=== PATIENT | male | born 1950 | race Hispanic/Latino ===

== ENCOUNTER → 2018-07-17 | Day surgery (SDC) | payer MEDICARE, OTHER ==
[~2018-07-17] MED LIST: AVODART0.5 MG PO; AZITHROMYCIN250 MG PO; ETHAMBUTOL HCL400 MG PO; FENTANYL CITRATE/PF 100MCG/2 ML INJ ONE; MIDAZOLAM HCL 2 MG/2 ML VIAL ONE; PROPOFOL IV EMULSION 10 MG/ML 50 ML VIAL ONE; TAMSULOSIN HCL0.4 MG PO; [UNRECOGNIZED DRUG - OTHER] PO
--- OUTSIDE RECORDS SUMMARY | 2018-07-17 09:41 | XMS REPORT ---
[facility] Address Unknown Phone Unavailable Care Team Providers Care Chemical Sprayer Name Role Phone Unavailable Unavailable Payers Payer Name Policy Type Policy Number Effective Date Expiration Date Problems This patient has no known problems. Allergies, Adverse Reactions, Alerts Allergy Name Allergy Type Status Severity Reaction(s) Onset Date Inactive Date Treating Clinician Comments No Known Allergies DA Active U 2015-06-15 00:00:00 Medications This patient has no known medications.
[2018-07-17 14:30] VITALS: BP 124/67
== END | disposition home or self-care (01) ==
LOC: OR 09:35
PROVIDERS: ATTEND Internal Medicine Gastroenterology
DX: K31.89 Other diseases of stomach and duodenum (principal); K29.50 Unspecified chronic gastritis without bleeding; K44.9 Diaphragmatic hernia without obstruction or gangrene; I49.1 Atrial premature depolarization; R05 Cough; N40.0 Benign prostatic hyperplasia without lower urinary tract symptoms; R09.89 Other specified symptoms and signs involving the circulatory and respiratory systems; R74.8 Abnormal levels of other serum enzymes; Z01.810 Encounter for preprocedural cardiovascular examination; Z01.812 Encounter for preprocedural laboratory examination; Z87.891 Personal history of nicotine dependence
CPT/HCPCS: 43239; 93005; J2250; J2704

== ENCOUNTER → 2018-07-24 | Day surgery (SDC) | payer MEDICARE, OTHER ==
[2018-07-13 09:35] LABS: BASOPHILS # (AUTO) 0.1 (0.0-0.1); BASOPHILS % 0.7 % (0.0-1.0); EOSINOPHILS # (AUTO) 0.4 (0.0-0.4); EOSINOPHILS % 5.6 % (0.0-6.0); HEMATOCRIT 42.6 % (38.2-49.6); LYMPHOCYTES # (AUTO) 1.3 (1.0-3.2); LYMPHOCYTES % 16.7 % (18.0-39.1); MEAN CORPUSCULAR HEMOGLOBIN 31.3 pg (28-32); MEAN CORPUSCULAR HGB CONC 35.2 g/dL (31-35); MEAN CORPUSCULAR VOLUME 88.9 fL (81-99); MONOCYTES # (AUTO) 0.9 (0.2-0.8); MONOCYTES % 11.1 % (4.4-11.3); NEUTROPHILS % 65.4 % (38.7-80.0); PLATELET COUNT 170 x10e3/uL (140-360); RED BLOOD COUNT 4.79 x10e6/uL (4.3-5.7); RED CELL DISTRIBUTION WIDTH 12.9 % (11.7-14.4)
[~2018-07-24] MED LIST changes: +HYOSCYAMINE SULFATE 0.5 MG/ML INJ ONE
[2018-07-24 08:25] VITALS: BP 119/71
== END | disposition home or self-care (01) ==
LOC: OR 05:00
PROVIDERS: ATTEND Internal Medicine Gastroenterology
DX: Z12.11 Encounter for screening for malignant neoplasm of colon (principal); K64.8 Other hemorrhoids; I49.1 Atrial premature depolarization; K31.89 Other diseases of stomach and duodenum; N40.0 Benign prostatic hyperplasia without lower urinary tract symptoms; R09.89 Other specified symptoms and signs involving the circulatory and respiratory systems; R74.8 Abnormal levels of other serum enzymes
CPT/HCPCS: 36415; 85025; G0121; J1980; J2250; J2704; 45378

== ENCOUNTER 2019-07-05 11:09 | Inpatient (IN) | payer MEDICARE, OTHER ==
[~2019-07-05] VITALS: Ht 170.2 cm; Wt 64.0 kg
[~2019-07-05 11:09] MED LIST changes: -FENTANYL CITRATE/PF 100MCG/2 ML INJ ONE; -HYOSCYAMINE SULFATE 0.5 MG/ML INJ ONE; -MIDAZOLAM HCL 2 MG/2 ML VIAL ONE; -PROPOFOL IV EMULSION 10 MG/ML 50 ML VIAL ONE
--- NOTE | 2019-07-05 11:31 | NUR ---
RESP CALLED FOR ABG.
[2019-07-05 11:57] LABS: CLARITY,URINE CLEAR (CLEAR); COLOR,URINE ORANGE (YELLOW); LEUKOCYTE ESTERASE ,URINE NEGATIVE (NEGATIVE); NITRITE,URINE NEGATIVE (NEGATIVE); PROTEIN,URINE DIPSTICK 1+ (NEGATIVE)
[2019-07-05 11:58] LABS: BILIRUBIN,URINE NEGATIVE (NEGATIVE); KETONES,URINE TRACE (NEGATIVE); URINE UROBILINOGEN 0.2 mg/dL (0.2 - 1)
[2019-07-05 12:18] LABS: BACTERIA,URINE MODERATE /HPF; EPITHELIAL CELLS,URINE RARE /LPF; HYALINE CASTS 0-1 (0-1); RBC,URINE 0-5 /HPF (0-5)
[2019-07-05 12:23] LABS: BASOPHILS # (AUTO) 0.1 (0.0-0.1); BASOPHILS % 0.5 % (0.0-1.0); EOSINOPHILS # (AUTO) 0.1 (0.0-0.4); EOSINOPHILS % 1.2 % (0.0-6.0); HEMATOCRIT 35.4 % (38.2-49.6); HEMOGLOBIN 11.9 g/dL (14.0-18.0); LYMPHOCYTES # (AUTO) 0.6 (1.0-3.2); LYMPHOCYTES % 5.2 % (18.0-39.1); MEAN CORPUSCULAR HEMOGLOBIN 28.7 pg (28-32); MEAN CORPUSCULAR HGB CONC 33.6 g/dL (31-35); MEAN CORPUSCULAR VOLUME 85.3 fL (81-99); MONOCYTES # (AUTO) 0.8 (0.2-0.8); MONOCYTES % 7.7 % (4.4-11.3); NEUTROPHILS % 84.6 % (38.7-80.0); PLATELET COUNT 298 x10e3/uL (140-360); RED BLOOD COUNT 4.15 x10e6/uL (4.3-5.7); RED CELL DISTRIBUTION WIDTH 13.7 % (11.7-14.4)
[2019-07-05 12:29] LABS: ABG HCO3 21 mmol/L (23-28); ABG PCO2 27 mmHg (41-51); ABG PH 7.49 (7.31-7.41); ABG PO2 88 mmHg (80-105)
[2019-07-05 12:39] LABS: INR 1.14; PROTHROMBIN TIME 15.3 seconds (11.9-14.5)
[2019-07-05 12:40] LABS: PARTIAL THROMBOPLASTIN TIME 44.6 seconds (23.8-35.5)
--- NOTE | 2019-07-05 12:47 | Diagnostic Imaging Report ---
Chest, 1 view, 07/05/2019. History: Shortness of breath. Hypoxia. Comparison: None available. Findings: The cardiomediastinal silhouette and pulmonary vasculature are within normal limits for a portable exam. Diffuse bilateral mixed reticulonodular and alveolar opacities are present. There is right apical pleural thickening. There are no acute osseous or soft tissue abnormalities. Impression: Diffuse bilateral pulmonary opacities suggestive of pneumonia superimposed on interstitial edema or fibrosis. Signed by: Kodak Weeks on 07/05/2019 12:44 PM
[2019-07-05 12:48] LABS: ALANINE AMINOTRANSFERASE 17 IU/L (0-55); ALBUMIN 2.8 g/dL (3.5-5.0); ALBUMIN/GLOBULIN RATIO 0.7 (0.8-2.0); ALKALINE PHOSPHATASE 115 IU/L (40-150); ANION GAP 16.2 mmol/L (8-16); BLOOD UREA NITROGEN 10 mg/dL (7-26); BUN/CREATININE RATIO 15 (6-25); CALCIUM 8.8 mg/dL (8.4-10.2); CARBON DIOXIDE 22 mmol/L (22-29); CHLORIDE 97 mmol/L (98-107); CREATINE KINASE 35 IU/L (30-200); CREATININE, SERUM 0.68 mg/dL (0.72-1.25); EST GLOMERULAR FILTRATION RATE > 60 ML/MIN (60-); GLUCOSE 118 mg/dL (74-118); POTASSIUM 4.2 mmol/L (3.5-5.1); SODIUM 131 mmol/L (136-145)
--- NOTE | 2019-07-05 14:03 | Diagnostic Imaging Report ---
EXAM: CT Chest WITH contrast 07/05/2019 11:56 AM INDICATION: ^PE PROTOCOL, SOB, SEVERE CLUBBING, ALSO EVAL FOR MASS ^[id number] ^[id number] COMPARISON: Chest radiograph 07/05/2019 TECHNIQUE: Chest was scanned utilizing a multidetector helical scanner from the lung apex through the level of the adrenal glands without administration of IV contrast. Coronal and sagittal reformations were obtained. Routine protocol was performed. IV CONTRAST: 100 mL of Omnipaque 300 COMPLICATIONS: None RADIATION DOSE: Total DLP: 484 mGy*cm Estimated effective dose: (DLP x 0.014 x size factor) mSv CTDIvol has been reviewed. It is below the limits set by the Radiation Protocol Committee (RPC). Dose modulation, iterative reconstruction, and/or weight based adjustment of the mA/kV was utilized to reduce the radiation dose to as low as reasonably achievable. FINDINGS: LINES/ TUBES: None. LUNGS AND AIRWAYS: Severe emphysematous change. Scattered interstitial reticulation and honeycombing, notably in the anterior aspect of the left upper lobe and bilateral lower lobes. Biapical bullous change with mild to moderate tubular bronchiectasis with bronchial wall thickening. Additional severe cystic bronchiectasis within the lung bases with associated mucous plugging. Multifocal airspace consolidation and nodularity, most notably within the dependent aspects of the lower lobes and lung apices. Few right basilar interstitial calcifications. PLEURA: Small right pleural effusion. No pneumothorax. HEART AND MEDIASTINUM: No filling defect is identified within the pulmonary arteries to the segmental branches. The main pulmonary artery is normal in caliber. The heart is at the upper limit of normal in size. No pericardial effusion. Diffuse mediastinal and hilar lymphadenopathy. For example, an enlarged right hilar lymph node measures up to 1.6 cm in short axis (image 40) and an enlarged precarinal mediastinal lymph node measures 1.3 cm in short axis (image 40). Advanced coronary artery calcification. UPPER ABDOMEN: Small hiatal hernia. No gross hepatic lesion. BONES: No acute osseous abnormality. SOFT TISSUES: Unremarkable. IMPRESSION: 1. No pulmonary embolus. 2. Severe interstitial lung disease with honeycombing, bronchiectasis, and interstitial reticulation most suggestive of UIP, intermixed with pulmonary emphysema. Mucous plugging and parenchymal consolidation, notably in the lung bases, suggests a superimposed infectious process. 3. Nonspecific mediastinal and hilar lymphadenopathy, likely reactive. 4. Advanced coronary artery atherosclerosis. Signed by: Michael Langley MD on 07/05/2019 2:00 PM
[2019-07-05] MEDS ORDERED: IOPAMIDOL 370 MG/ML 200 ML INFUS..BTL INJ ONE (14:17)
[2019-07-05] MEDS ORDERED: SODIUM CHLORIDE 0.9% 50ML 50 ML ONE (14:17)
--- NOTE | 2019-07-05 15:06 | NUR ---
NOTIFIED OF VITALS.
[2019-07-05] MEDS ORDERED: METHYLPREDNISOLONE SOD SUCC 125 MG/2ML VIAL IV STA (15:07)
--- NOTE | 2019-07-05 15:32 | NUR ---
HAD TO CALL 2ND TIME FOR RESP TO COME BRING BIPAP
[2019-07-05] MEDS: ALBUTEROL SULF 0.083% NEB SOLN 3 ML NEB NEB SCH ×3 (15:56→19:15)
[2019-07-05] MEDS: IPRATROPIUM BROMIDE 0.02% 2.5 ML NEB NEB SCH ×3 (15:56→19:15)
[2019-07-05] MEDS ORDERED: ZOLPIDEM TARTRATE 5 MG TAB PO PRN (16:00)
[2019-07-05] MEDS: PIPER-TAZ 3.375 GM 50 ML IV SCH ×2 (16:00→21:31)
[2019-07-05] MEDS: LEVOFLOXACIN 750MG/D5W 150ML 150 ML IV SCH (17:18)
[2019-07-05] MEDS: SODIUM CHLORIDE 0.9% 1000ML 1,000 ML IV SCH (17:18)
--- NOTE | 2019-07-05 17:31 | NUR ---
05/01, rate 16, 50% fio2
[2019-07-05] MEDS ORDERED: ATROVENT HFA12.9 GM (18:17)
[2019-07-05] MEDS ORDERED: CEFPODOXIME PR200 MG PO (18:17)
[2019-07-05] MEDS ORDERED: RIFAMPIN300 MG PO (18:17)
[2019-07-05] MEDS ORDERED: FAMOTIDINE40 MG PO (18:17)
[2019-07-05] MEDS ORDERED: PREDNISONE20 MG (18:17)
[2019-07-05] MEDS ORDERED: TRELEGY ELLIPT1 EACH (18:17)
[2019-07-05] MEDS ORDERED: CLARITHROMYCIN500 MG PO (18:17)
[2019-07-05] MEDS ORDERED: ALBUTEROL2.5 MG/3 M (18:17)
[2019-07-05] MEDS ORDERED: AMIKACIN (18:17)
[2019-07-05] MEDS ORDERED: ACETAMINOPHEN 325 MG TAB PO PRN (19:15)
[2019-07-05] MEDS ORDERED: FINASTERIDE5 MG PO (19:21)
[2019-07-05] MEDS: METHYLPREDNISOLONE SOD SUCC 125 MG/2ML VIAL IV SCH (21:35)
[2019-07-05] MEDS: CLARITHROMYCIN 500 MG TAB PO SCH (21:37)
[2019-07-05] MEDS ORDERED: METHYLPREDNISOLONE SOD SUCC 125 MG/2ML VIAL IV SCH (22:00)
--- NOTE | 2019-07-05 23:31 | Consultation ---
DATE OF CONSULTATION: 07/05/2019 Pulmonary Critical Care Consultation CHIEF COMPLAINT: Dyspnea and history of mycobacterial avium infection. HISTORY OF PRESENT ILLNESS: The patient is a 68-year-old man. He has a history of chronic lung disease. He had some type of surgery and lung biopsy about a year ago. He has been on medications for Mycobacterium avium to an Infectious Disease doctor at [facility] for at least the last year. He also has a history of COPD. He uses oxygen at home as well as bronchodilators. Apparently, the patient was in Dr. Chambers's office for a GI evaluation when they noticed low oxygen saturation. The patient admits to dyspnea on exertion. He does not complain of cough or phlegm production. He denies any fevers. PAST SURGICAL HISTORY: 1. Status post thoracoscopic lung biopsy. 2. Status post hand surgery. 3. Status post foot surgery. PAST MEDICAL HISTORY: 1. Mycobacterium avium complex. 2. Bronchiectasis of the lungs as a result of the Mycobacterium avium complex. 3. Severe COPD. 4. Hiatal hernia. 5. Benign prostatic hypertrophy. SOCIAL HISTORY: The patient is not the active drinker. He is not actively smoking. FAMILY HISTORY: Family history is noncontributory. REVIEW OF SYSTEMS: The patient is afebrile. He has no headache. He has no neck pain. He is not having any chest pain. He has no abdominal pain. There is no nausea or vomiting. He denies any leg edema. PHYSICAL EXAMINATION: VITAL SIGNS: The patient is afebrile. Blood pressure 113/75 and the saturation is 100% on 4 L. Pulse is 89 and the respiratory rate is 26. HEENT: Shows no facial swelling or erythema. Oropharynx is normal. LYMPHATIC: Shows no submandibular, cervical, or supraclavicular adenopathy. CARDIAC: Reveals regular rate and rhythm with a normal S1 and S2. LUNGS: Auscultation of lungs reveals crackles at the bases. There is no wheezing. ABDOMEN: Soft, nontender. There is no rebound or guarding. EXTREMITIES: Show no leg edema or calf tenderness. There is no cyanosis or clubbing. There is marked clubbing in his hands. LABORATORY DATA: White blood cell count is 10.6 and hemoglobin is 11.9. The platelet count is 298. The BUN to creatinine ratio is normal. The sodium is 131. Albumin is 2.8. INR is 1.14 and the PT is 15.3. The ABG shows a pH of 7.5 and a CO2 of 27 with an O2 of 88 and a bicarb of 21. IMPRESSION: 1. Bronchiectasis with acute exacerbation. 2. Mycobacterium avium complex with chronic infection. 3. Chronic obstructive pulmonary disease with acute exacerbation. 4. Moderate protein-calorie malnutrition. 5. Prostatic hypertrophy. 6. Hypertension. PLAN: 1. Continue ethambutol, rifampin, and azithromycin as he was taking as an outpatient for his Mycobacterium avium complex. 2. Levaquin and Zosyn for any superimposed bacterial infection related to the bronchiectasis. 3. Await culture results. 4. Solu-Medrol 1 mg/kg twice a day. 5. Oxygen. 6. Nutritional supplementation. 7. Bronchodilators as needed. MD KEYUR [facility]/BRIDGETTL /[id number]
[2019-07-06] VITALS (9 sets, daily range): BP systolic 112–132; BP diastolic 51–69
[2019-07-06] MEDS: ALBUTEROL SULF 0.083% NEB SOLN 3 ML NEB NEB SCH ×7 (00:15→23:40)
[2019-07-06] MEDS: IPRATROPIUM BROMIDE 0.02% 2.5 ML NEB NEB SCH ×7 (00:15→23:40)
[2019-07-06 00:52] LABS: BASOPHILS % 0.3 % (0.0-1.0); EOSINOPHILS # (AUTO) 0.1 (0.0-0.4); EOSINOPHILS % 1.1 % (0.0-6.0); HEMATOCRIT 34.3 % (38.2-49.6); HEMOGLOBIN 11.5 g/dL (14.0-18.0); LYMPHOCYTES # (AUTO) 0.9 (1.0-3.2); LYMPHOCYTES % 9.7 % (18.0-39.1); MEAN CORPUSCULAR HEMOGLOBIN 28.7 pg (28-32); MEAN CORPUSCULAR HGB CONC 33.5 g/dL (31-35); MEAN CORPUSCULAR VOLUME 85.5 fL (81-99); MONOCYTES # (AUTO) 0.8 (0.2-0.8); MONOCYTES % 9.2 % (4.4-11.3); NEUTROPHILS # (AUTO) 7.2 (2.1-6.9); NEUTROPHILS % 78.6 % (38.7-80.0); PLATELET COUNT 307 x10e3/uL (140-360); RED BLOOD COUNT 4.01 x10e6/uL (4.3-5.7); RED CELL DISTRIBUTION WIDTH 13.7 % (11.7-14.4)
[2019-07-06] MEDS: SODIUM CHLORIDE 0.9% 1000ML 1,000 ML IV SCH (01:21)
[2019-07-06] MEDS: PIPER-TAZ 3.375 GM 50 ML IV SCH ×4 (02:43→20:46)
--- NOTE | 2019-07-06 05:54 | Diagnostic Imaging Report ---
EXAMINATION: CHEST SINGLE (PORTABLE) INDICATION: Pneumonia COMPARISON: 07/05/2019. FINDINGS: TUBES and LINES: None. LUNGS: Redemonstration of marked diffuse coarsening of the pulmonary interstitium, with multifocal patchy consolidation particularly right upper lobe best evaluated on recent CT examination of the chest. PLEURA: Bilateral trace pleural effusion. No pneumothorax. HEART AND MEDIASTINUM: The cardiomediastinal silhouette is unremarkable. BONES AND SOFT TISSUES: No acute osseous lesion. UPPER ABDOMEN: No free air under the diaphragm. IMPRESSION: No significant interval change in marked diffuse coarsening of the pulmonary interstitium, with multifocal patchy consolidation. Signed by: Dr. Fiorella Vee M.D. on 07/06/2019 5:51 AM
[2019-07-06 07:14] LABS: CREATINE KINASE 21 IU/L (30-200)
[2019-07-06] MEDS: RIFAMPIN 300 MG CAP PO SCH (08:00)
[2019-07-06] MEDS: ETHAMBUTOL HCL 400 MG TAB PO SCH (08:00)
[2019-07-06] MEDS: METHYLPREDNISOLONE SOD SUCC 125 MG/2ML VIAL IV SCH ×2 (08:00→20:44)
[2019-07-06] MEDS: CLARITHROMYCIN 500 MG TAB PO SCH ×2 (08:00→20:46)
[2019-07-06] MEDS: TAMSULOSIN HCL 0.4 MG CAP PO SCH (08:00)
[2019-07-06] MEDS ORDERED: CEFPODOXIME PROXETIL 200 MG PO SCH (09:00)
[2019-07-06] MEDS ORDERED: RIFAMPIN 300 MG CAP PO SCH (09:00)
[2019-07-06] MEDS ORDERED: ETHAMBUTOL HCL 400 MG TAB PO SCH (09:00)
[2019-07-06] MEDS ORDERED: AZITHROMYCIN 250 MG TAB PO SCH (09:00)
[2019-07-06] MEDS ORDERED: RIFAMPIN 600 MG PO SCH (09:00)
[2019-07-06] MEDS ORDERED: CLARITHROMYCIN 500 MG TAB PO SCH (09:00)
[2019-07-06] MEDS: LEVOFLOXACIN 750MG/D5W 150ML 150 ML IV SCH (15:39)
--- NOTE | 2019-07-06 17:10 | Progress Note ---
DATE: 07/06/2019 Pulmonary Progress Note This patient feels better. He has less dyspnea and less cough. He is not having any chest pain. PHYSICAL EXAMINATION: VITAL SIGNS: The patient is afebrile. The vital signs are stable. HEENT: Shows no facial swelling or erythema. CARDIAC: Reveals a regular rate and rhythm with normal S1, S2. LUNGS: Auscultation of lungs reveals clear breath sounds bilaterally. There is a prolonged expiratory phase. ABDOMEN: Soft, nontender. There is no rebound or guarding. LABORATORY DATA: BUN to creatinine ratio is normal. The other electrolytes are within normal limits. CBC is normal. IMPRESSION: 1. Bronchiectasis with acute exacerbation. 2. Mycobacterium avium infection. 3. Chronic obstructive pulmonary disease. 4. Moderate protein-calorie malnutrition. 5. Hypertension. PLAN: 1. Continue current antimicrobial regimen. 2. Consult ID. 3. Continue Solu-Medrol. 4. Continue oxygen. 5. Continue nutritional supplementation. Grant Aviles MD Gissel/BRIDGETTL /[id number]
[2019-07-07] VITALS (11 sets, daily range): BP systolic 103–153; BP diastolic 49–74
[2019-07-07] MEDS: PIPER-TAZ 3.375 GM 50 ML IV SCH ×4 (03:20→20:23)
[2019-07-07 04:52] LABS: CREATINE KINASE 28 IU/L (30-200)
[2019-07-07 05:15] LABS: ALANINE AMINOTRANSFERASE 16 IU/L (0-55); ALBUMIN 2.6 g/dL (3.5-5.0); ALBUMIN/GLOBULIN RATIO 0.7 (0.8-2.0); ALKALINE PHOSPHATASE 91 IU/L (40-150); ANION GAP 19.1 mmol/L (8-16); BLOOD UREA NITROGEN 10 mg/dL (7-26); BUN/CREATININE RATIO 14 (6-25); CALCIUM 8.4 mg/dL (8.4-10.2); CARBON DIOXIDE 17 mmol/L (22-29); CHLORIDE 101 mmol/L (98-107); CREATININE, SERUM 0.71 mg/dL (0.72-1.25); EST GLOMERULAR FILTRATION RATE > 60 ML/MIN (60-); GLUCOSE 137 mg/dL (74-118); POTASSIUM 4.1 mmol/L (3.5-5.1); SODIUM 133 mmol/L (136-145)
[2019-07-07 05:26] LABS: BASOPHILS % 0.1 % (0.0-1.0); HEMATOCRIT 31.8 % (38.2-49.6); HEMOGLOBIN 10.3 g/dL (14.0-18.0); LYMPHOCYTES # (AUTO) 0.5 (1.0-3.2); LYMPHOCYTES % 4.7 % (18.0-39.1); MEAN CORPUSCULAR HEMOGLOBIN 28.2 pg (28-32); MEAN CORPUSCULAR HGB CONC 32.4 g/dL (31-35); MEAN CORPUSCULAR VOLUME 87.1 fL (81-99); MONOCYTES # (AUTO) 0.5 (0.2-0.8); MONOCYTES % 4.6 % (4.4-11.3); NEUTROPHILS # (AUTO) 9.1 (2.1-6.9); NEUTROPHILS % 89.9 % (38.7-80.0); PLATELET COUNT 334 x10e3/uL (140-360); RED BLOOD COUNT 3.65 x10e6/uL (4.3-5.7); RED CELL DISTRIBUTION WIDTH 13.5 % (11.7-14.4)
[2019-07-07 05:49] LABS: ANION GAP 13.2 mmol/L (8-16); BLOOD UREA NITROGEN 9 mg/dL (7-26); BUN/CREATININE RATIO 13 (6-25); CALCIUM 8.9 mg/dL (8.4-10.2); CARBON DIOXIDE 19 mmol/L (22-29); CHLORIDE 104 mmol/L (98-107); CREATININE, SERUM 0.68 mg/dL (0.72-1.25); EST GLOMERULAR FILTRATION RATE > 60 ML/MIN (60-); GLUCOSE 348 mg/dL (74-118); POTASSIUM 3.2 mmol/L (3.5-5.1); SODIUM 133 mmol/L (136-145)
[2019-07-07 06:22] LABS: CREATINE KINASE MB 0.7 ng/mL (0-5.0)
--- NOTE | 2019-07-07 06:28 | NUR ---
Notified Nu Rodriguez NP of glucose 348, accucheck 355. Pt denies hx of diabetes and sugary snacks. PATTERNMAKER PRESSURE CAST said she "will look at it in a little bit".
[2019-07-07] MEDS: IPRATROPIUM BROMIDE 0.02% 2.5 ML NEB NEB SCH ×4 (07:13→19:20)
[2019-07-07] MEDS: ALBUTEROL SULF 0.083% NEB SOLN 3 ML NEB NEB SCH ×4 (07:13→19:20)
[2019-07-07] MEDS: CLARITHROMYCIN 500 MG TAB PO SCH ×2 (08:36→20:16)
[2019-07-07] MEDS: TAMSULOSIN HCL 0.4 MG CAP PO SCH (08:36)
[2019-07-07] MEDS: METHYLPREDNISOLONE SOD SUCC 125 MG/2ML VIAL IV SCH ×2 (08:36→20:16)
[2019-07-07] MEDS: ETHAMBUTOL HCL 400 MG TAB PO SCH (08:37)
[2019-07-07] MEDS: RIFAMPIN 300 MG CAP PO SCH (08:37)
--- NOTE | 2019-07-07 11:03 | Progress Note ---
DATE: 07/07/2019 SUBJECTIVE: The patient has some improvement, but still complains of dyspnea. He is not complaining of fever. He has no chest pain. PHYSICAL EXAMINATION: VITAL SIGNS: The patient is afebrile. The vital signs are stable. CARDIAC: Reveals regular rate and rhythm with normal S1 and S2. LUNGS: Auscultation of lungs shows clear breath sounds bilaterally. There is no wheezing. ABDOMEN: Soft, nontender. There is no rebound or guarding. EXTREMITIES: Show no leg edema or calf tenderness. There is no cyanosis or clubbing. SKIN: Shows no rashes. NEUROLOGIC: Shows no focal abnormalities. LABORATORY DATA: Potassium is 3.2. White blood cell count is 10.1, hemoglobin is 10.3. IMPRESSION: 1. Bronchiectasis with acute exacerbation. 2. Mycobacterium avium infection. 3. Chronic obstructive pulmonary disease. 4. Moderate protein-calorie malnutrition. 5. Hypertension. PLAN: 1. Continue current antimicrobial regimen. 2. Review antibiotics with Infectious Disease. 3. Continue Solu-Medrol. 4. Continue oxygen. 5. Continue nutritional supplementation. 6. Case discussed with the patient, brother, Infectious Disease and Dr. Fox service. Grant Aviles MD [facility]/BRIDGETTL /[id number]
[2019-07-07] MEDS: LEVOFLOXACIN 750MG/D5W 150ML 150 ML IV SCH (16:02)
--- NOTE | 2019-07-07 19:09 | NUR ---
reports received,patient in bed, awake alert oriented, no acute distress noted, denied any discomfort. vitals checked all within normal level.
[2019-07-07] MEDS: FINASTERIDE 5 MG TAB PO SCH (20:16)
--- NOTE | 2019-07-07 21:39 | Consultation ---
DATE OF CONSULTATION: 07/07/2019 REASON FOR CONSULTATION: Pneumonia with Mycobacterium avium. HISTORY OF PRESENT ILLNESS: This is a 68-year-old male, who has history of chronic lung disease, had lung biopsy about a year ago. The patient was diagnosed with Mycobacterium avium. The patient has been on treatment with ethambutol and rifampin. He is coming now with shortness of breath. He was seeing Dr. Chambers when he was hypoxemic, so he was admitted. The patient is currently lying in bed comfortably. PAST MEDICAL HISTORY: He does have history of Mycobacterium avium complex infection, bronchiectasis, COPD, hiatal hernia, benign prostate hypertrophy. PAST SURGICAL HISTORY: Thoracic lung biopsy, foot surgery. ALLERGIES: NKA. SOCIAL HISTORY: There is no smoking, drug abuse, or alcohol abuse currently. FAMILY HISTORY: Otherwise noncontributory. REVIEW OF SYSTEMS: Besides the shortness of breath and a dry cough and fatigue, he denies any. HEENT: Negative. PULMONARY: Negative. CARDIAC: Negative. LABORATORY DATA: White count 10.6, hemoglobin 11.9, platelet 298. Sodium 133, potassium 3.2 with creatinine 0.68 with albumin of 2.6. Influenza A and B were negative. The patient had a chest CT, which showed no pulmonary embolism, severe interstitial lung disease with honeycombing, bronchiectasis, consolidation to suggest superimposed infection. MEDICATIONS: The patient is currently on rifampin, ethambutol, Biaxin, Solu-Medrol, and Zosyn as well as Levaquin. PHYSICAL EXAMINATION: GENERAL: He is currently alert, oriented, does not seem to be in acute distress. VITAL SIGNS: Stable, currently afebrile. HEENT: Normocephalic, not icteric. NECK: Supple. CHEST: Few crackles bilateral. COR: S1, S2, no murmurs. ABDOMEN: Soft. Bowel sounds present. No tenderness. EXTREMITIES: No edema. SKIN: No rash. IMPRESSION: Community-acquired pneumonia, superimposed chronic obstructive pulmonary disease superimposing bronchiectasis and history of Mycobacterium avium. PLAN: Obtain sputum for AFB. Obtain sputum for culture and sensitivity. Continue his Mycobacterium avium treatment. Agree with Rocephin, azithromycin, oxygen and Solu-Medrol. Discontinue Levaquin. Continue Zosyn and azithromycin. Continue with ethambutol and rifampin. MD GIRISH López/LORIE /[id number]
[2019-07-08] VITALS (7 sets, daily range): BP systolic 109–153; BP diastolic 62–80
[2019-07-08] MEDS: PIPER-TAZ 3.375 GM 50 ML IV SCH ×3 (02:35→14:58)
--- NOTE | 2019-07-08 03:44 | NUR ---
blood drawn , sent sample to labs.
[2019-07-08] MEDS: IPRATROPIUM BROMIDE 0.02% 2.5 ML NEB NEB SCH ×7 (03:45→23:30)
[2019-07-08] MEDS: ALBUTEROL SULF 0.083% NEB SOLN 3 ML NEB NEB SCH ×7 (03:45→23:30)
[2019-07-08 04:12] LABS: BASOPHILS % 0.2 % (0.0-1.0); HEMATOCRIT 31.9 % (38.2-49.6); HEMOGLOBIN 10.8 g/dL (14.0-18.0); LYMPHOCYTES # (AUTO) 0.6 (1.0-3.2); LYMPHOCYTES % 7.2 % (18.0-39.1); MEAN CORPUSCULAR HGB CONC 33.9 g/dL (31-35); MEAN CORPUSCULAR VOLUME 85.5 fL (81-99); MONOCYTES # (AUTO) 0.3 (0.2-0.8); MONOCYTES % 3.5 % (4.4-11.3); NEUTROPHILS # (AUTO) 7.6 (2.1-6.9); NEUTROPHILS % 88.2 % (38.7-80.0); PLATELET COUNT 381 x10e3/uL (140-360); RED BLOOD COUNT 3.73 x10e6/uL (4.3-5.7); RED CELL DISTRIBUTION WIDTH 13.7 % (11.7-14.4)
[2019-07-08 04:28] LABS: ANION GAP 16.2 mmol/L (8-16); BLOOD UREA NITROGEN 9 mg/dL (7-26); BUN/CREATININE RATIO 15 (6-25); CALCIUM 8.9 mg/dL (8.4-10.2); CARBON DIOXIDE 20 mmol/L (22-29); CHLORIDE 106 mmol/L (98-107); EST GLOMERULAR FILTRATION RATE > 60 ML/MIN (60-); GLUCOSE 189 mg/dL (74-118); SODIUM 138 mmol/L (136-145)
[2019-07-08 04:40] LABS: POTASSIUM 4.2 mmol/L (3.5-5.1)
[2019-07-08] MEDS ORDERED: CEFTRIAXONE SOD 1 GM/NS 50 ML 50 ML IV SCH (05:45)
[2019-07-08] MEDS: AZITHROMYCIN 500MG/NS 250 ML 250 ML IV SCH (06:46)
[2019-07-08] MEDS: METHYLPREDNISOLONE SOD SUCC 40 MG/ML VIAL 1ML IV SCH ×2 (09:09→20:28)
[2019-07-08] MEDS: RIFAMPIN 300 MG CAP PO SCH (09:09)
[2019-07-08] MEDS: ETHAMBUTOL HCL 400 MG TAB PO SCH (09:09)
[2019-07-08] MEDS: TAMSULOSIN HCL 0.4 MG CAP PO SCH (09:09)
--- NOTE | 2019-07-08 10:05 | Diagnostic Imaging Report ---
Exam: Chest one view Clinical history: PICC insertion Comparison: July 06, 2019 Findings: There is interval insertion of a left arm PICC with its tip overlying the cavoatrial junction. Bilateral patchy airway opacities are again noted without interval improvement. The cardiac size is within normal limits. There is no evidence of pleural effusion or pneumothorax. The regional osseous structures are unremarkable. Signed by: Dr. Syed Pinzon MD on 07/08/2019 10:02 AM
--- NOTE | 2019-07-08 10:47 | Progress Note ---
DATE: 07/08/2019 SUBJECTIVE: The patient feels better. He has less cough. He is only using 2 L of oxygen. PHYSICAL EXAMINATION: VITAL SIGNS: The patient is afebrile. The vital signs are stable. CARDIAC: Regular rate and rhythm with normal S1 and S2. LUNGS: Auscultation of lungs reveals clear breath sounds bilaterally. There is no wheezing. ABDOMEN: Soft, nontender. There is no rebound or guarding. EXTREMITIES: No leg edema or calf tenderness. IMPRESSION: 1. Bronchiectasis with acute exacerbation. 2. Chronic obstructive pulmonary disease with acute exacerbation. 3. Mycobacterium avium complex. PLAN: 1. Continue current antibiotics. 2. Wean steroids. 3. Wean oxygen. Grant Aviels MD [facility]/MODL /[id number]
[2019-07-08] MEDS ORDERED: AMIKACIN SULFATE 250 MG/ML 2ML VIAL IV SCH (17:15)
--- NOTE | 2019-07-08 18:18 | NUR ---
pt stable. to be dc with picc line and HH setup for outpatient iv abx for 8 weeks. csm aware. updated Nu. 2 daughters at bedside aware.
[2019-07-08] MEDS: AMIKACIN SULFATE 500 MG in SODIUM CHLORIDE 0.9% 100 ML IV SCH (18:26)
[2019-07-08] MEDS: FINASTERIDE 5 MG TAB PO SCH (20:28)
[2019-07-08] MEDS: BENZONATATE 100 MG CAP PO PRN (20:29)
[2019-07-09 00:12] VITALS: BP 124/60
[2019-07-09] MEDS: ALBUTEROL SULF 0.083% NEB SOLN 3 ML NEB NEB SCH ×4 (03:45→15:20)
[2019-07-09] MEDS: IPRATROPIUM BROMIDE 0.02% 2.5 ML NEB NEB SCH ×4 (03:45→15:20)
[2019-07-09 04:13] VITALS: BP 125/86
[2019-07-09] MEDS: AZITHROMYCIN 500MG/NS 250 ML 250 ML IV SCH (05:14)
[2019-07-09 05:33] LABS: BASOPHILS % 0.5 % (0.0-1.0); EOSINOPHILS # (AUTO) 0.1 (0.0-0.4); EOSINOPHILS % 0.9 % (0.0-6.0); HEMATOCRIT 35.5 % (38.2-49.6); HEMOGLOBIN 11.5 g/dL (14.0-18.0); LYMPHOCYTES # (AUTO) 1.3 (1.0-3.2); LYMPHOCYTES % 20.7 % (18.0-39.1); MEAN CORPUSCULAR HEMOGLOBIN 28.5 pg (28-32); MEAN CORPUSCULAR HGB CONC 32.4 g/dL (31-35); MEAN CORPUSCULAR VOLUME 87.9 fL (81-99); MONOCYTES # (AUTO) 0.5 (0.2-0.8); MONOCYTES % 8.4 % (4.4-11.3); NEUTROPHILS # (AUTO) 4.3 (2.1-6.9); NEUTROPHILS % 68.4 % (38.7-80.0); PLATELET COUNT 420 x10e3/uL (140-360); RED BLOOD COUNT 4.04 x10e6/uL (4.3-5.7); RED CELL DISTRIBUTION WIDTH 14.1 % (11.7-14.4)
[2019-07-09 05:51] LABS: ANION GAP 15.9 mmol/L (8-16); BLOOD UREA NITROGEN 11 mg/dL (7-26); BUN/CREATININE RATIO 18 (6-25); CALCIUM 9.1 mg/dL (8.4-10.2); CARBON DIOXIDE 24 mmol/L (22-29); CHLORIDE 104 mmol/L (98-107); EST GLOMERULAR FILTRATION RATE > 60 ML/MIN (60-); GLUCOSE 124 mg/dL (74-118); POTASSIUM 3.9 mmol/L (3.5-5.1); SODIUM 140 mmol/L (136-145)
[2019-07-09 08:00] VITALS: BP 121/65
[2019-07-09] MEDS: METHYLPREDNISOLONE SOD SUCC 40 MG/ML VIAL 1ML IV SCH (08:14)
[2019-07-09] MEDS: ETHAMBUTOL HCL 400 MG TAB PO SCH (08:15)
[2019-07-09] MEDS: TAMSULOSIN HCL 0.4 MG CAP PO SCH (08:15)
[2019-07-09] MEDS: RIFAMPIN 300 MG CAP PO SCH (08:16)
--- NOTE | 2019-07-09 10:47 | Progress Note ---
DATE: 07/09/2019 SUBJECTIVE: The patient has less dyspnea. He is requiring less oxygen. Overall, he feels slightly better. PHYSICAL EXAMINATION: VITAL SIGNS: The patient is afebrile. The vital signs are stable. HEENT: Shows no facial swelling or erythema. CARDIAC: Reveals regular rate and rhythm with normal S1 and S2. LUNGS: Auscultation of lungs reveals rhonchorous breath sounds bilaterally. There is no wheezing. ABDOMEN: Soft, nontender. There is no rebound or guarding. EXTREMITIES: Show no leg edema or calf tenderness. There is no cyanosis or clubbing. SKIN: Shows no rashes. IMPRESSION: 1. Bronchiectasis with acute exacerbation. 2. Chronic mycobacterial avium infection. 3. Chronic obstructive pulmonary disease with acute exacerbation. 4. Benign prostatic hypertrophy. PLAN: 1. Discuss outpatient antibiotic regimen with ID. 2. Continue oxygen at home. 3. Taper steroids. Grant Aviles MD [facility]/LORIE /[id number]
[2019-07-09 12:00] VITALS: BP 126/63
--- NOTE | 2019-07-09 14:05 | Progress Note ---
DATE: 07/09/2019 SUBJECTIVE: Mr. Horton is feeling better. His shortness of breath is doing better. I had a very long discussion with him and the family yesterday, and his both daughters. The patient apparently being followed by Infectious Disease and Pulmonary at the [facility]. He has been on treatment for more than a year and a half with 3 drugs. Recently, inhaled amikacin, liposomal was added to him, but he has been using for the last year also without any improvement. He could not tolerate. The patient cannot inhale it. He is having problem with it and in the meantime, apparently his condition is slowly deteriorating. PHYSICAL EXAMINATION: GENERAL: He is alert and oriented, does not seem in acute distress. VITAL SIGNS: Stable. Afebrile. HEENT: He is not icteric. NECK: Supple. CHEST: Few rhonchi bilateral. COR: S1, S2. No S3, S4, or murmur. ABDOMEN: Soft. Bowel sounds present. No tenderness. EXTREMITIES: No edema. SKIN: No rash. IMPRESSION AND PLAN: 1. Chronic Mycobacterium avium infection, still active apparently. We will obtain sputum for AFB. 2. Bronchiectasis with underlying chronic obstructive pulmonary disease and [id number] exacerbation, probably due to pneumonia. 3. Clinically, he seems to be better. We will continue with rifampin 600 mg p.o. daily, ethambutol 1600 mg daily and he is also on azithromycin 500 mg p.o. daily. I recommended to give him IV amikacin 1 g q.8. Obtain sputum for AFB now and then reassess in 2 months. I also recommended that they can go to [place] to get a second opinion. We will get a PICC line. We will arrange home IV antibiotic. We will follow. MD GIRISH López/LORIE /[id number]
--- NOTE | 2019-07-09 14:36 | NUR ---
ORDER RECEIVED FOR HOME IV AMIKACIN 1GM IV Q MWF X 2MONTHS. WEEKLY CBC AND CHEM PANEL. F/U W [facility] IN 2 WEEKS. CM MET W THE PT AT THE BEDSIDE. DISCUSSED CHOICE. PT STATES HE WAS NOT GOING TO [facility] FOR TREATMENT AND WAS NOT SURE WHERE THAT CAME FROM. VERIFIED PT'S ADDRESS AND PHONE #. [facility] @ OFF: [phone] / FAX: [phone]. REFERRAL WAS FAXED. AWAITING APPROVAL.
[2019-07-09 16:00] VITALS: BP 124/74
--- NOTE | 2019-07-09 16:16 | NUR ---
HOME HEALTH DISCHARGE NOTE PATIENT ADDRESS WHERE SERVICE WILL BE RECEIVED: [facility] [place] [address] PATIENT CONTACT NUMBER: [phone] NAME OF HOME HEALTH COMPANY: [employer] TELEPHONE/FAX NUMBER OF COMPANY: OFF: [phone] / FAX: [phone] ADDRESS OF COMPANY: [id number] [facility] [place] [address] SERVICES TO RECEIVE: IV AMIKACIN 1GM IV Q MWF ANTICIPATED DATE SERVICES WILL BEGIN: 07/10/2019 Please call the [employer] above if you have not received a call to schedule a home visit within 24 hours of discharge. Addendum: 07/09/19 at 1635 by Ruthie Ames CM NAME OF HOME HEALTH COMPANY: [email or web address] TELEPHONE/FAX NUMBER OF COMPANY: OFF: [phone] SERVICES TO RECEIVE: SKILLED NURSE FOR IV INFUSION ANTICIPATED DATE SERVICES WILL BEGIN: 07/10/2019 Please call the [employer] above if you have not received a call to schedule a home visit within 24 hours of discharge.
[2019-07-09] MEDS: AMIKACIN SULFATE 500 MG in SODIUM CHLORIDE 0.9% 100 ML IV SCH (17:30)
[2019-07-09] MEDS: BENZONATATE 100 MG CAP PO PRN (17:54)
--- NOTE | 2019-07-09 18:21 | NUR ---
Discussed with pt and daughter regarding PICC line. Demonstrated how to cover the PICC for shower. Information packet given to patient. Stated understanding. The infusion nurse will also educated general care at home.
--- NOTE | 2019-07-09 19:00 | NUR ---
Rosenda Godoy RN completing discharge with my assistance. Refer to pts paper chart for discharge paperwork and further information.
--- NOTE | 2019-07-09 19:40 | NUR ---
Pt discharged at this time with his daughter. Pt wheeled to car without event, no distress noted.
--- NOTE | 2019-07-10 03:33 | Discharge Summary ---
CONSULTING PHYSICIANS: 1. Lisbeth Price MD. 2. Grant Aviles MD. HOSPITAL COURSE: This is a 68-year-old male, who got admitted with complaints of shortness of breath. He has a history of chronic lung disease. He had some type of surgery and lung biopsy about a year ago and has been on medication for Mycobacterium avium from his Infectious Disease doctor at [facility] for the past one year. He also has a history of COPD and is oxygen dependent at home as well as bronchodilators. While in the hospital, the patient also got evaluated by the Infectious Disease and was placed on IV Zosyn and azithromycin. He also continued taking ethambutol and rifampin. The patient has improved his shortness of breath. He has been cleared by Dr. Aviles and Dr. Price and Case Management have arranged outpatient IV antibiotics. Dr. Price also recommended for a second opinion from [place], [place]. MEDICATIONS: Include: 1. DuoNeb neb treatment. 2. Flomax 0.4 daily. 3. Ethambutol 1600 mg daily. 4. Azithromycin 500 mg daily. 5. Rifampin 600 mg daily. 6. Prednisone taper dose. 7. Finasteride 5 mg at bedtime. PHYSICAL EXAMINATION: VITAL SIGNS: Temperature is 97.4, heart rate is 80, blood pressure is 121/65, respiratory rate is 23, and oxygen saturation is 94% on room air. GENERAL: The patient is alert and oriented x3. LUNGS: Decreased breath sounds, on continuous oxygen. CARDIOVASCULAR: Regular rate and rhythm. NECK: Supple. ABDOMEN: Soft and nontender. EXTREMITIES: With no edema. LABORATORY DATA: Labs 07/09/2019, sodium is 140, potassium is 3.9, chloride is 104, CO2 is 24, BUN is 11, creatinine 0.60, glucose is 124, WBC 6.32, hemoglobin 11.5, hematocrit 35.5, platelets is 420. DIAGNOSES: 1. Chronic Mycobacterium avium infection. Continue with antibiotics, ethambutol, rifampin, azithromycin and follow up with Infectious Disease. 2. Bronchiectasis with underlying chronic obstructive pulmonary disease. 3. BPH. FOLLOWUP: 1. The patient is advised to follow up with primary care physician in one week. 2. Follow up with Infectious Disease in one week. The patient is stable upon discharge. Dictated by Vane Onofre, DEBRA MD MAN Summers/LORIE /[id number]
[2019-07-10] MEDS ORDERED: AZITHROMYCIN 250 MG TAB PO SCH ×2 (06:00)
== END 2019-07-09 19:40 | disposition home health service (06) | DRG 177 ==
LOC: ER 11:09 → ERHOLD 15:19 → IMCU 07-06 00:36
PROVIDERS: ADMIT Internal Medicine; ATTEND Internal Medicine
PROC: 02HV33Z Insertion of Infusion Device into Superior Vena Cava, Percutaneous Approach (ICD-10-PCS; principal; 2019-07-08)
DX: A31.0 Pulmonary mycobacterial infection (principal); J96.22 Acute and chronic respiratory failure with hypercapnia; J96.21 Acute and chronic respiratory failure with hypoxia; J44.1 Chronic obstructive pulmonary disease with (acute) exacerbation; E44.0 Moderate protein-calorie malnutrition; J44.0 Chronic obstructive pulmonary disease with (acute) lower respiratory infection; J18.9 Pneumonia, unspecified organism; A31.9 Mycobacterial infection, unspecified; N40.0 Benign prostatic hyperplasia without lower urinary tract symptoms; Z99.81 Dependence on supplemental oxygen
CPT/HCPCS: 36415; 36569; 36600; 71045; 71260; 80048; 80053; 81001; 82550; 82553; 82805; 82948; 83036; 83735; 83880; 84484; 85025; 85379; 85610; 85730; 87040; 87070; 87086; 87116; 87205; 87206; 87400; 93005; 93306; 94640; 94660; 94667; 94668; 99284; J0456; J0696; J2543; J2920; J2930; J7030; J7050; Q9967

== ENCOUNTER → 2019-10-29 | Day surgery (SDC) | payer MEDICARE, OTHER ==
[2019-10-25 12:24] LABS: BASOPHILS % 0.2 % (0.0-1.0); EOSINOPHILS % 0.3 % (0.0-6.0); HEMATOCRIT 36.4 % (38.2-49.6); LYMPHOCYTES # (AUTO) 0.4 (1.0-3.2); LYMPHOCYTES % 2.7 % (18.0-39.1); MEAN CORPUSCULAR HEMOGLOBIN 27.8 pg (28-32); MEAN CORPUSCULAR VOLUME 84.3 fL (81-99); MONOCYTES # (AUTO) 0.5 (0.2-0.8); MONOCYTES % 3.1 % (4.4-11.3); NEUTROPHILS # (AUTO) 13.3 (2.1-6.9); NEUTROPHILS % 92.9 % (38.7-80.0); PLATELET COUNT 264 x10e3/uL (140-360); RED BLOOD COUNT 4.32 x10e6/uL (4.3-5.7); RED CELL DISTRIBUTION WIDTH 14.1 % (11.7-14.4)
[2019-10-25 12:58] LABS: LYMPHOCYTES % (MANUAL) 4 % (19-48); MONOCYTES % (MANUAL) 2 % (3.4-9.0); NEUTROPHILS % (MANUAL) 94 % (40-74); PLATELET ESTIMATE ADEQUATE; PLATELET MORPHOLOGY COMMENT NORMAL; RBC MORPHOLOGY COMMENT NORMAL
[~2019-10-29] MED LIST changes: +ALBUTEROL2.5 MG/3 M; +AMIKACIN; +ATROVENT HFA12.9 GM; +CEFPODOXIME PR200 MG PO; +CLARITHROMYCIN500 MG PO; +FAMOTIDINE40 MG PO; +FENTANYL CITRATE/PF 100MCG/2 ML INJ ONE; +FINASTERIDE5 MG PO; +MIDAZOLAM HCL 2 MG/2 ML VIAL ONE; +OR PHACO EYE KIT ONE; +PREDNISONE20 MG; +PREOP PHACO EYE KIT ONE; +RIFAMPIN300 MG PO; +TRELEGY ELLIPT1 EACH; +VIAGRA50 MG PO
[2019-10-29 13:45] VITALS: BP 134/78
== END | disposition home or self-care (01) ==
LOC: OR 10:55
PROVIDERS: ATTEND Ophthalmology
DX: H25.12 Age-related nuclear cataract, left eye (principal); F41.9 Anxiety disorder, unspecified; J44.9 Chronic obstructive pulmonary disease, unspecified; Z01.812 Encounter for preprocedural laboratory examination; Z11.59 Encounter for screening for other viral diseases; Z99.81 Dependence on supplemental oxygen; Z87.01 Personal history of pneumonia (recurrent); Z85.118 Personal history of other malignant neoplasm of bronchus and lung
CPT/HCPCS: 36415; 66984; 85025; 87635; J2250; J3010